=== PATIENT | female | born 1980 | race Caucasian/White ===

== ENCOUNTER 2017-03-11 05:31 | Emergency (ER) | payer OTHER ==
[~2017-03-11] VITALS: Ht 160 cm; Wt 145.1 kg
[~2017-03-11 05:31] MED LIST: ANTACID200 MG PO; ASPIRIN ADULT L81 M1 PO; BIRTH CONTROL1 EAC1 PO; FISH OIL + D31 EACH PO; LISINOPRIL-HYDR1 TA3 PO; LORAZEPAM1 MG PO; MULTI VITAMINS1 TAB PO; PROZAC40 M1 PO; TEGRETOL200 MG PO; TRAMADOL HCL50 MG PO; ZOLOFT50 MG PO
[2017-03-11] MEDS ORDERED: NORCO 5-325 TA1 EACH PO (06:33)
[2017-03-11] MEDS ORDERED: IBU800 MG PO (06:33)
== END 2017-03-11 07:00 | disposition home or self-care (01) ==
LOC: ED 05:31
DX: S96.912A Strain of unspecified muscle and tendon at ankle and foot level, left foot, initial encounter (principal); Z88.1 Allergy status to other antibiotic agents; Z79.82 Long term (current) use of aspirin; W18.09XA Striking against other object with subsequent fall, initial encounter; Y93.89 Activity, other specified; Y92.9 Unspecified place or not applicable; Y99.9 Unspecified external cause status

== ENCOUNTER 2017-09-26 13:17 | Inpatient (IN) | payer OTHER ==
[~2017-09-26] VITALS: Ht 160 cm; Wt 165.2 kg
--- NOTE | ~2017-09-26 | EKG ---
[place], [place] ELECTROCARDIOGRAM REPORT NAME: JOSH FERGUSON UNIT #: [id number] ROOM: [facility] DOCTOR: RENEA VIEYRA,BROOKE BIRTHDATE: [birth year] DOS: 09/26/2017 TIME: 1435 hours IMPRESSION: 1. Atrial flutter, possible versus a sinus rhythm. 2. Baseline artifacts. 3. Low voltage complexes. BROOKE MEIER MD CM:EKGRPT:ELECTROCARDIOGRAM REPORT [id number] BROOKE MEIER MD
[2017-09-26 13:17] VITALS: BP 149/75
[~2017-09-26 13:17] MED LIST changes: +IBU800 MG PO; +NORCO 5-325 TA1 EACH PO
[2017-09-26 14:00] VITALS: BP 149/75
--- NOTE | 2017-09-26 14:15 | NUR ---
PT REFUSED TO USE THE BATHROOM OR LET RN DO ORTHOSTATIC BPs AT THIS TIME STATING "I'M JUST TOO DIZZY" DR MYERS.
[2017-09-26 14:31] LABS: HEMATOCRIT 43.5 % (37.0-47.0); HEMOGLOBIN 14.6 g/dl (12.0-16.0); MEAN CELL VOLUME 92.8 fl (81.0-99.0); MEAN CORPUSCULAR HGB 31.1 pg (27.0-31.0); MEAN CORPUSCULAR HGB CONC 33.6 g/dl (33.0-37.0); MEAN PLATELET VOLUME 10.5 fl (9.6-12.3); PLATELET COUNT AUTOMATED 343 10*3/uL (130-400); RED BLOOD COUNT 4.69 10*6/uL (4.10-5.10); RED CELL DISTRI WIDTH 12.9 % (0-14.5); WHITE BLOOD COUNT 14.5 10*3/uL (4.8-10.8)
[2017-09-26 14:40] LABS: ACT PARTIAL THROMBO TIME 21.5 SECONDS (20.8-31.5); INTERNATIONAL NORM RATIO 0.9 (2.0-3.5)
[2017-09-26 14:47] LABS: ALBUMIN 3.4 gm/dl (3.1-4.5); ALKALINE PHOSPHATASE 88 U/L (45-117); BUN 14 mg/dl (7-24); CHLORIDE 108 mmol/L (98-107); CREATININE 0.82 mg/dL (0.55-1.02); LIPASE 84 U/L (73-393); POTASSIUM 3.4 mmol/L (3.5-5.1); SGOT/AST 19 IU/L (3-35); SGPT/ALT 25 U/L (12-78); SODIUM 140 mmol/L (136-145); TOTAL PROTEIN 7.7 gm/dL (6.4-8.2)
[2017-09-26 14:49] LABS: BETA-HCG, QUANT < 1.0 mIU/mL (1-3); TROPONIN I < 0.015 ng/ml (<0.045)
[2017-09-26 14:56] LABS: PLATELET SUFFICIENCY NORMAL (NORMAL); TOTAL CELLS COUNTED 100 #CELLS
--- NOTE | 2017-09-26 15:00 | NUR ---
PT STATES THAT MEDICATIONS FOR NAUSEA AND DIZZINESS "HELPED SOME" PT DENIES NAUSEA BUT STATES THAT SHE IS STILL HAVING SOME DIZZINESS WHEN SHE MOVES HER HEAD.
--- NOTE | 2017-09-26 17:30 | NUR ---
PT ASSISTED TO AMBULATE TO BR AT THIS TIME. URINE SAMPLE OBTAINED. PT ASSISTED BACK TO ROOM.
[2017-09-26 17:44] LABS: BILIRUBIN NEGATIVE (NEGATIVE); BLOOD NEGATIVE (NEGATIVE); CLARITY SL CLOUDY (CLEAR); COLOR YELLOW (YELLOW); GLUCOSE NEGATIVE (NEGATIVE); KETONE TRACE (NEGATIVE); LEUKO ESTERASE NEGATIVE (NEGATIVE); NITRITE NEGATIVE (NEGATIVE); UROBILINOGEN 0.2 E.U./dl (0.2-1.0)
[2017-09-26 17:59] LABS: BACTERIA 2+; EPITHELIAL CELLS 16-20; MUCOUS TRACE; RBC 0-2 rbc/hpf (0-2); WBC 0-2 wbc/hpf (0-5)
[2017-09-26 18:00] VITALS: BP 138/78
--- NOTE | 2017-09-26 19:50 | NUR ---
PATIENTS MEDICATIONS WERE REVIEWED WITH PATIENT AND MED REC IS CORRECT AND UP TO DATE. PATIENT ADMITTED TO FLOOR AND ORIENTED TO ROOM AND CALL LIGHT CURRENTLY RESTING IN BED CALL LIGHT IN [facility]
[2017-09-26 21:17] VITALS: BP 117/56
--- NOTE | 2017-09-26 21:43 | NUR ---
PATIENT RESTING IN BED CALL LIGHT IN REACH PATIENT HAS NO CO AT THIS TIME
[2017-09-27] VITALS: BP 119/66
--- NOTE | 2017-09-27 01:05 | NUR ---
PATIENT LEFT AMA CARDIAC MONIOTR AND IV REMOVED
== END 2017-09-27 01:05 | disposition left against medical advice (07) | DRG 149 ==
LOC: ED 13:17 → EDHOLD 18:20 → 5E 18:34
PROVIDERS: Emergency Medicine; ADMIT Internal Medicine
DX: R42 Dizziness and giddiness (principal); E87.2 Acidosis; E87.8 Other disorders of electrolyte and fluid balance, not elsewhere classified; E83.41 Hypermagnesemia; Z68.44 Body mass index [BMI] 60.0-69.9, adult; D72.829 Elevated white blood cell count, unspecified; E66.9 Obesity, unspecified; E87.6 Hypokalemia; I10 Essential (primary) hypertension; R26.81 Unsteadiness on feet; K21.9 Gastro-esophageal reflux disease without esophagitis; Z53.21 Procedure and treatment not carried out due to patient leaving prior to being seen by health care provider; F41.8 Other specified anxiety disorders; Z82.49 Family history of ischemic heart disease and other diseases of the circulatory system; Z88.1 Allergy status to other antibiotic agents; Z79.82 Long term (current) use of aspirin; Z79.899 Other long term (current) drug therapy

== ENCOUNTER → 2017-12-13 | Outpatient (CLI) | payer OTHER | END | disposition home or self-care (01) | LOC: RAD 15:39 | DX: L52 Erythema nodosum (principal); R21 Rash and other nonspecific skin eruption; M25.50 Pain in unspecified joint; I10 Essential (primary) hypertension; L53.9 Erythematous condition, unspecified ==

== ENCOUNTER → 2018-05-29 | Outpatient (CLI) | payer OTHER ==
[2018-05-29 16:07] LABS: HEMATOCRIT 46.6 % (37.0-47.0); HEMOGLOBIN 15.4 g/dl (12.0-16.0); MEAN CELL VOLUME 94.9 fl (81.0-99.0); MEAN CORPUSCULAR HGB 31.4 pg (27.0-31.0); MEAN PLATELET VOLUME 10.1 fl (9.6-12.3); RED BLOOD COUNT 4.91 10*6/uL (4.10-5.10); RED CELL DISTRI WIDTH 12.7 % (0-14.5); WHITE BLOOD COUNT 12.2 10*3/uL (4.8-10.8)
[2018-05-29 16:21] LABS: ALBUMIN 3.6 gm/dl (3.1-4.5); ALKALINE PHOSPHATASE 82 U/L (45-117); BUN 16 mg/dl (7-24); CHLORIDE 107 mmol/L (98-107); CHOLESTEROL 190 mg/dL (<200); CPK 45 U/L (26-192); CREATININE 0.93 mg/dL (0.55-1.02); HDL CHOLESTEROL 41 mg/dl (40-60); LDL CHOLESTEROL 112 mg/dL (9-159); POTASSIUM 4.5 mmol/L (3.5-5.1); SGOT/AST 12 IU/L (3-35); SGPT/ALT 18 U/L (12-78); SODIUM 140 mmol/L (136-145); TOTAL PROTEIN 8.2 gm/dL (6.4-8.2); TRIGLYCERIDES 187 mg/dl (<150); VLDL CHOLESTEROL 37 mg/dL (6-40)
[2018-05-29 16:29] LABS: THYROID STIM HORMONE (HS) 0.655 uIU/ml (0.358-4.75)
== END | disposition home or self-care (01) ==
LOC: LAB 15:47
PROVIDERS: Family Medicine
DX: E78.00 Pure hypercholesterolemia, unspecified (principal); E55.9 Vitamin D deficiency, unspecified; M79.1 Myalgia; R53.83 Other fatigue; R42 Dizziness and giddiness; M79.673 Pain in unspecified foot

== ENCOUNTER → 2019-11-27 | Outpatient (CLI) | payer OTHER ==
[2019-11-27 09:56] LABS: BASO % 0.4 % (0.0-1.0); EOS # 0.2 10*3/uL (0.0-0.4); EOS % 1.9 % (1.0-4.0); HEMOGLOBIN 14.6 g/dl (12.0-16.0); LYMPH # 3.7 10*3/uL (1.3-4.4); MEAN CELL VOLUME 97.9 fl (81.0-99.0); MEAN CORPUSCULAR HGB 31.1 pg (27.0-31.0); MEAN CORPUSCULAR HGB CONC 31.7 g/dl (33.0-37.0); MEAN PLATELET VOLUME 10.1 fl (9.6-12.3); MONO # 0.6 10*3/uL (0.1-1.0); MONO % 6.8 % (3.0-9.0); NEUT # 4.6 10*3/uL (2.3-7.9); NEUT % 50.6 % (47.0-73.0); PLATELET COUNT AUTOMATED 304 10*3/uL (130-400); WHITE BLOOD COUNT 9.2 10*3/uL (4.8-10.8)
[2019-11-27 10:17] LABS: ALBUMIN 3.7 gm/dl (3.1-4.5); ALKALINE PHOSPHATASE 94 U/L (45-117); BUN 10 mg/dl (7-24); CHLORIDE 110 mmol/L (98-107); CHOLESTEROL 189 mg/dL (<200); CREATININE 0.72 mg/dL (0.55-1.02); HDL CHOLESTEROL 59 mg/dl (40-60); LDL CHOLESTEROL 114 mg/dL (9-159); SGOT/AST 12 IU/L (3-35); SGPT/ALT 24 U/L (12-78); SODIUM 142 mmol/L (136-145); TRIGLYCERIDES 82 mg/dl (<150); VLDL CHOLESTEROL 16 mg/dL (6-40)
[2019-11-28 08:10] LABS: RHEUMATOID ARTHRITIS FACTOR 11.7 IU/mL (0.0-13.9)
== END | disposition home or self-care (01) ==
LOC: LAB 08:50
PROVIDERS: Nurse Practitioner Primary Care
DX: I10 Essential (primary) hypertension (principal); R07.89 Other chest pain; R70.0 Elevated erythrocyte sedimentation rate; Z79.899 Other long term (current) drug therapy

== ENCOUNTER 2024-01-13 22:45 | Emergency (ER) | payer OTHER ==
[~2024-01-13] VITALS: Ht 167.6 cm; Wt 127.0 kg
[2024-01-14] MEDS ORDERED: Ondansetron Hydrochloride 4 MG/2 ML VIAL IV ONE ×2 (02:55→09:05)
[2024-01-14] MEDS ORDERED: HYDROmorphONE Hydrochloride 0.5 MG/0.5 ML SYRINGE IV ONE (02:55)
[2024-01-14] MEDS ORDERED: MORPHINE Sulfate 2 MG/ML SYR IV ONE (09:05)
== END 2024-01-14 12:09 | disposition short-term general hospital (02) ==
LOC: ED 22:45
DX: S11.23XA Puncture wound without foreign body of pharynx and cervical esophagus, initial encounter (principal); Z88.1 Allergy status to other antibiotic agents; Z79.899 Other long term (current) drug therapy; Z79.82 Long term (current) use of aspirin; X58.XXXA Exposure to other specified factors, initial encounter; Y93.89 Activity, other specified; Y92.89 Other specified places as the place of occurrence of the external cause; Y99.8 Other external cause status